=== PATIENT | male | born 1985 | race Caucasian/White ===

== ENCOUNTER 2025-05-14 16:13 | Emergency (ER) | payer BC, SELFPAY ==
[2025-05-14 16:16] VITALS: BP 135/83; PULSE 105; RESP 16; TEMP 36.3; O2SAT 98; BMI 29.3
--- OUTSIDE RECORDS SUMMARY | 2025-05-14 16:16 | XMS_ITS | Clinical Summary ---
Demographics Address [address] [place] [address] Home Phone Mobile Phone Home Phone Email Address Preferred Language Belgian Marital Status Unknown [employer] Affiliation Unknown Race White Ethnic Group Other Race Author Organization [facility] Address [address] [place] [id number] Care Team Providers Care Quality Specialist Name Role Phone Russell Sloan DO Primary Care Provider Allergies No known active allergies Medications No known medications Active Problems Problem Noted Date Diagnosed Date Tobacco abuse 01/11/2016 GERD (gastroesophageal reflux disease) 3 Immunizations Immunization Administration Dates Next Due MMR 01/07/1999 Td (Age >=7 Years) 01/07/1999 Td, Preservative Free (age >= 7 Years) 4 Family History Medical History Relation Name Comments Colon polyps Father Leukemia Mother Relation Name Status Comments Father Alive Mother (Age 32) Leukemia Social History Tobacco Use Types Packs/Day Years Used Date Smoking Tobacco: Every Day Cigarettes Smokeless Tobacco: Never Tobacco Cessation:Ready to Q uit: No; Counseling Given: Yes Alcohol Use Standard Drinks/Week Comments No 0 (1 standard drink = 0.6 oz pur e alcohol) rare PHQ-2 Answer Date Recorded PHQ-2 TOTAL SCORE 2 09/11/2024 Social Connections Answer Date Recorded Do you often feel lonely or isolated from those around you? 0 09/11/2024 Financial Resource Strain Answer Date R ecorded Difficulty of Paying Living Expenses 3 09/11/2024 Difficulty of Paying Living Expenses Not on file 09/11/2024 Food Insecurity Answer Date Recorded Do you worry your food will run out before you are able to buy more? 1 09/11/2024 Transportation Needs Answer Date Record ed Does lack of transportation keep you from medica l appointments? 1 09/11/2024 Does lack of transportation keep you from work, meetings or getting things that you need? 1 09/11/2024 Housing Stability Answer Date Recorded What is your housing situation today? 1 09/11/2024 Utilities Answer Date Recorded Do you have trouble paying f or utilities (for example, heat, electricity, water, phone)? 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 Not on file Not on file Obstetrics History Last Filed Vital Signs Vital Sign Reading Time Taken Comments Blood Pressure 133/87 09/11/2024 7:56 AM BUSINESS INFO CONSULTANT Pulse 78 09/11/2024 7:56 AM BUSINESS INFO CONSULTANT Temperature 36.6 C (97.9 F) 07/11/2021 7:06 AM CDT Respiratory Rate - - Oxygen Saturation 99% 09/11/2024 7:56 AM BUSINESS INFO CONSULTANT Inhaled Oxygen Concentration - - Weight 85 kg (187 lb 4.8 oz) 09/11/2024 7:56 AM BUSINESS INFO CONSULTANT Height 178.8 cm (5' 10.39) 09/11/2024 7:[address] Body Mass Index 26.57 09/11/2024 7:56 AM BUSINESS INFO CONSULTANT Plan of Treatment Health Maintenance Due Date Last Done Comments HIV for age 15-65 2001 Hepatitis C screening for age 18-79 2004 Hepatitis B series for 19+ ( 1 of 3 - 19+ 3-dose series) 2005 Pneumococcal series for age 6-49 (1 of 2 - PCV) 2005 Lipids for age 35-44 2021 COVID-19 vaccine series ( - season) 2024 Influenza Vaccine (#1) 2025 BMI (ht and wt on same day) for age 18+ 09/11/2025 1 11/12/2023, 01/11/2016 Depression screening for age 12+ 09/11/2025 09/11/20 24 Tetanus booster 09/11/2034 09/11/2024, 01/07/1999 Insurance [facility] Care Teams Quality Specialist Relationship Specialty Start Date End Date Russell Sloan DO [address] [place] [address] PCP - General Family Practice 07/11/21
[2025-05-14 16:29] LABS: Appearance Urine Clear (Clear)
--- NOTE | 2025-05-14 16:36 | CRLHL7_ITS ---
For Patients: As a result of the Century Cures Act, medical imaging exams and procedure reports are released immediately into your electronic medical record. You may view this report before your referring provider. If you have questions, please contact your health care provider. Indication: Left lower quadrant pain and flank pain Technique: CT through the abdomen and pelvis following 100 mL Isovue 370 IV contrast Comparison: None Findings: Lower chest: No acute abnormality appreciated. Hepatobiliary: No significant parenchymal abnormality is appreciated. Spleen: Unremarkable. Pancreas: No acute abnormality appreciated. Adrenal glands: No acute abnormality appreciated. Kidneys: Mild prominence of the left ureter. Bowel: No obstruction. No focal perienteric or pericolonic stranding is appreciated. The appendix is visualized and appears unremarkable. Vascular: No acute abnormality appreciated. Mild atherosclerosis. Lymph nodes: No gross lymphadenopathy. Peritoneum: No free air. No free fluid. : Left UVJ stone measures 3 millimeters. Wall thickening and stranding of the bladder. Soft tissues: No acute abnormality appreciated. Bones: No acute fracture. No lytic or blastic lesion. Impression: 1. There is a 3 millimeter left UVJ stone with very mild ureteral prominence and no fer hydronephrosis. 2. Bladder wall thickening with adjacent stranding, nonspecific but can be correlated for UTI/cystitis. Please note that all CT scans at this facility use dose modulation, iterative reconstruction, and/or weight-based dosing when appropriate to reduce radiation dose to as low as reasonably achievable. Dictated by Juni Rosas MD @ 05/14/2025 5:26:07 PM (Electronically Signed)
--- NOTE | 2025-05-14 16:37 | ED_ITS ---
HPI - General Adult General Date Seen: 05/14/25 Chief complaint: Flank Pain Stated complaint: pain on L side to back, trouble urninating Time Seen by Provider: 05/14/25 16:19 Source: patient Mode of arrival: ambulatory Limitations: no limitations History of Present Illness HPI narrative: Patient is a 39-year-old male with no pertinent medical problems presenting to the emergency department for left low flank and left lower quadrant abdominal pain. States symptoms have been going on for the past 4 days. Denies ever having symptoms like this before. States pain as coming gone. On Sunday the pain caused in the come home from work but he was then pain for yesterday. Today states the pain was the worst it has ever been. Describes this sharp stabbing sensation is left lower quadrant that radiates to his back. He went to urgent care by the time get urgent care symptoms resolved. Symptoms came back and he was sent to the emergency department. Again by time he got to the emerge ncy department symptoms have resolved. States he is completely symptom-free at this time. Has not had any dysuria or hematuria but has noticed difficulty urinating. States he can only urinate a small trickle. Has never had issues with urination before. Denies fevers, chills, chest pain, shortness of breath, headache, lightheadedness, dizziness, weakness, numbness. No other concerns noted. Related Data Home Medications ?Medication ?Instructions ?Recorded ?Confirmed No Known Home Medications 05/14/2504/18 Allergies Allergy/AdvReac Type Severity Reaction Status Date / Time No Known Drug Allergies Allergy Verified 05/14/25 15:20 Review of Systems Status of ROS: Reports: 10 or more systems reviewed and unremarkable except as noted in History and below [facility] Social History Smoking Status: Current every day smoker Do you use any of these nicotine containing products: Vaping Products Second hand tobacco smoke exposure: No How often do you have a drink containing alcohol: never How often do you have six or more drinks on one occasion: Never AUDIT-C Alcohol total score: 0 Non-prescribed substance use: denies use Exam Narrative: Exam Narrative: Const: Well-nourished, Well-developed, in no distress Eyes: PERRL, no conjunctival injection, and symmetrical lids HENT: Atraumatic external nose and ears. Moist mucous membranes. Neck: Symmetric, trachea midline, No thyromegaly. CVS: RRR, No murmurs or gallops. Peripheral pulses 2+ and equal in all extremities RESP: Unlabored respiratory effort. Clear to auscultation bilaterally. GI: Nontender/Nondistended, No rebound or guarding. MSK:Extremities w/o deformity, Normal Active ROM Skin: Warm, Dry. No rashes or lesions. Neuro: Normal Muscle tone, No focal neurological deficits. Psych: Awake, Alert, & Oriented x3. Appropriate mood and affect. Const: Vital Signs, click to edit/add: Vital Signs - 24 hr 05/14/25 16:16 Temperature 97.3 F L Pulse Rate [Pulse Oximeter] 105 H Respiratory Rate 16 Blood Pressure [Ri ght Upper Arm] 135/83 Pulse Oximetry 98 Oxygen Delivery Me thod Room Air Course Vital Signs Vital signs: Initial Vital Signs Temperature 97.3 F L 05/14/25 16:16 Temperature Source Temporal Artery Scan 05/14/25 16:16 Pulse Rate 105 H 05/14/25 16:16 Respiratory Rate 16 05/14/25 16:16 Blood Pressure 135/83 05/14/25 16:16 Blood Pressure Mean 100 05/14/25 16:16 Blood Pressure Position Sitting 05/14/25 16:16 Pulse Oximetry 98 05/14/25 16:16 Oxygen Delivery Method Room Air 05/14/25 16:16 Vital Signs Temperature 97.3 F L 05/14/25 16:16 Pulse Rate 105 H 05/14/25 16:16 Respiratory Rate 16 05/14/25 16:16 Blood Pressure 135/83 05/14/25 16:16 Pulse Oximetry 98 05/14/25 16:16 Oxygen Delivery Method Room Air 05/14/25 16:16 Temperature 97.3 F L 05/14/25 16:16 Pulse Rate 105 H 05/14/25 16:16 Respiratory Rate 16 05/14/25 16:16 Blood Pressure 135/83 05/14/25 16:16 Pulse Oximetry 98 05/14/25 16:16 Oxygen Delivery Method Room Air 05/14/25 16:16 Medical Decision Making [facility] Narrative Medical decision making narrative: Patient is a 39-year-old male presenting for left lower quadrant abdominal pain, difficulty urinating, lower left flank pain. Differential at this time includes a UTI, diverticulitis, nephrolithiasis, colitis. This is a location of pain ap pendicitis, pancreatitis, gallbladder/liver disease seem less likely. No history of abdominal surgeries in [facility] seems unlikely. Will do a CT scan for better evaluation. Will also do a CBC, CMP, lipase, urinalysis, viral swab. Lab work returned showing blood in the urine but otherwise no concerning abnormalities. He does have slightly elevated LFTs. Do not have comparison. CT scan returned showing a 3 mm left UVJ stone but no obvious hydronephrosis. There is some bladder wall thickening and adjacent stranding but this is nonspecific. His urine does not show any nitrites, leukocyte esterases, white blood cells, bacteria. I feel comfortable saying he does not have a UTI at this time. I offered to send him home on Toradol he declined and states he feels like he can managed with just Tylenol and ibuprofen. He is safe for discharge. Lab Data Labs: Lab Results 05/14/25 05/14/25 Range/Units 15:23 16:45 WBC 11.76 H (4.50-11.00) K/uL RBC 5.93 H (4.30-5.90) m/uL Hgb 17.4 (13.5-17.5) gm/dL Hct 50.3 (37.0-53.0) % MCV 85 (80-100) fL MCH 29 (26-34) pg MCHC 35 (32-36) gm/dL RDW Coeff of Noam 12.0 (11.5-15.5) % Plt Count 248 (140-440) K/uL Neut % (Auto) 77.3 H (42.0-72.0) % Lymph % (Auto) 14.7 L (20-44) % Vigo % (Auto) 6.0 (0.0-11.0) % Eos % (Auto) 0.7 (0.0-7.0) % Baso % (Auto) 0.4 (0.0-3.0) % Neut # (Auto) 9.10 H (1.7-7.0) K/uL Lymph # (Auto) 1.70 (0.90-2.90) K/uL Vigo # (Auto) 0.70 (0.00-0.90) K/UL Eos # (Auto) 0.10 (0.00-0.50) K/uL Baso # (Auto) 0.00 (0.00-0.30) K/uL Abs Immat Gran (auto) 0.10 (0.00-0.30) K/uL Imm/Tot Granulo (auto) 0.9 % Sodium 140 (135-149) mmol/L Potassium 3.9 (3.6-5.1) mmol/L Chloride 106 (96-114) mmol/L Carbon Dioxide 25 (20-32) mmol/L Anion Gap 9 (7-15) mEq/L BUN 10 (5-24) mg/dL Creatinine 1.0 (0.5-1.5) mg/dL Estimated Creat Clear 106.68 Estimated GFR 99 ml/min Glucose 118 H (60-115) mg/dL Calcium 9.9 (8.4-10.6) mg/dL Total Bilirubin 0.4 (0.1-1.5) mg/dL AST 46 H (12-35) U/L ALT 94 H (4-50) U/L Alkaline Phosphatase 75 (40-150) U/L Total Protein 7.5 (6.0-8.3) g/dL Albumin 4.6 (3.3-5.0) g/dL Lipase 110 (23-300) U/L Urine Color Dark yellow (Yellow) Urine Appearance Clear (Clear) Urine pH 5.5 (5.0-8.5) Ur Specific Hustler >= 1.030 (1.000-1.030) Urine Protein 2+ A (Negative) Urine Glucose (UA) Negative (Negative) Urine Ketones 1+ A (Negative) Urine Blood 3+ A (Negative) Urine Nitrite Negative (Negative) Urine Bilirubin 1+ A (Negative) Urine Urobilinogen 1.0 (0.2-1.0) Ur Leukocyte Esterase Negative (Negative) Urine RBC 0-2 (0-2) Urine WBC 0-2 (0-5) Ur Squamous Epith Cells None (None-Few) Urine Bacteria None (None) SARS-CoV-2 (PCR) Negative SARS-CoV-2 (Negative) Influenza Type A (PCR) Negative PCR FLU A (Negative) Influenza Type B (PCR) Negative PCR FLU B (Negative) RSV (PCR) Negative PCR RSV (Negative) Discharge Plan Discharge Clinical Impression: Urolithiasis Qualifiers: Urinary calculus location: ureter Qualified Code(s): N20.1 - Calculus of ureter Patient Disposition: Home, Self-Care Condition: Stable Instructions: How to Strain Your Urine (ED) Additional Instructions: You have a kidney stone that should pass on its own. If you develops fevers, pain with urination or any other new or concerning symptoms return for re- evaluation. Take Tylenol ibuprofen for pain. Lab work also shows mildly elevated LFTs. This time the not high enough to be of a large concerned might do recommend following up with a primary care provider to monitor them to make sure there are not increasing. Prescriptions: No Action No Known Home Medications Follow Up/Referrals: Provider,Not a Local [Primary Care Provider, Family Practice] Stand Alone Forms: [employer] Info Instructions
[2025-05-14 17:02] LABS: Hematocrit 50.3 % (37.0-53.0); Hemoglobin* 17.4 gm/dL (13.5-17.5); Immature Granulocytes Pct Auto 0.9 %; Mean Corpuscular HGB Conc 35 gm/dL (32-36); Mean Corpuscular Hemoglobin 29 pg (26-34); Mean Corpuscular Volume 85 fL (80-100); RDW Coefficient of Variation % 12.0 % (11.5-15.5); Red Blood Count 5.93 m/uL (4.30-5.90); White Blood Count* 11.76 K/uL (4.50-11.00)
[2025-05-14 17:25] LABS: Immature Granulocytes Abs Auto 0.10 K/uL (0.00-0.30); Lymphocytes Absolute Auto 1.70 K/uL (0.90-2.90); Slide Review Reflex No
[2025-05-14 17:35] LABS: Albumin* 4.6 g/dL (3.3-5.0); Chloride* 106 mmol/L (96-114); Potassium* 3.9 mmol/L (3.6-5.1); Sodium* 140 mmol/L (135-149)
[2025-05-14 17:38] LABS: Alanine Aminotransferase* 94 U/L (4-50); Alkaline Phosphatase* 75 U/L (40-150); Anion Gap 9 mEq/L (7-15); Aspartate Amino Transferase* 46 U/L (12-35); Bilirubin Total* 0.4 mg/dL (0.1-1.5); Blood Urea Nitrogen* 10 mg/dL (5-24); Calcium* 9.9 mg/dL (8.4-10.6); Carbon Dioxide* 25 mmol/L (20-32); Creatinine* 1.0 mg/dL (0.5-1.5); Est. Creatinine Clearance* 106.68; Estimated Glomerular Filt Rate 99 ml/min; Glucose* 118 mg/dL (60-115); Total Protein* 7.5 g/dL (6.0-8.3)
[2025-05-14 17:44] LABS: PCR FLU A Negative PCR FLU A (Negative); PCR FLU B Negative PCR FLU B (Negative); PCR RSV Negative PCR RSV (Negative); SARS PCR* Negative SARS-CoV-2 (Negative)
[2025-05-14 18:13] VITALS: BP 133/80; PULSE 78
== END 2025-05-14 18:15 | disposition home or self-care (01) ==
PROVIDERS: Emergency Provider Student in an Organized Health Care Education/Training Program
DX: N20.9 Urinary calculus, unspecified (principal); R31.9 Hematuria, unspecified; F17.210 Nicotine dependence, cigarettes, uncomplicated
CPT/HCPCS: 36415; 74177; 80053; 81001; 82565; 83690; 85025; 87631; 99284; 99285; Q9967